=== PATIENT | female | born 1955 | race Caucasian/White ===

== ENCOUNTER 2016-11-01 19:10 | Emergency (ER) | payer OTHER ==
--- NOTE | 2016-11-01 19:26 | PDOC ---
Rapid Medical Evaluation Time Seen by Provider: 11/01/16 19:18 Medical Evaluation: 11/01/16 19:19 I have performed a brief in-person evaluation of this patient. The patient presents with a chief complaint of: cough, congestion x 2 weeks, hip pain worse with walking x 2 weeks. breast cancer with mastectomy 10 years ago Pertinent physical exam findings. lungs clear bilateral , I have ordered the following: cxr The patient will proceed to fast track for further evaluation.
[2016-11-01 19:35] VITALS: PULSE 102; TEMP 98.4; BMI 28.3
[2016-11-01 19:40] VITALS: BP 164/89
--- NOTE | 2016-11-01 20:44 | PDOC ---
History of Present Illness - General Chief Complaint: Cold Symptoms Stated Complaint: PALPITATIONS Time Seen by Provider: 11/01/16 19:18 - History of Present Illness Initial Comments: 11/01/16 20:43 CHIEF COMPLAINT: URI symptoms HISTORY OF PRESENT ILLNESS: 60-year-old female with no significant past medical history presents to ED with productive cough, the aches, headaches, and discomfort to right hip when walking 2 weeks. Patient's complains that she " has the flu". No recent travel or sick contacts. PAST MEDICAL HISTORY: Denies past medical history FAMILY HISTORY: Denies SOCIAL HISTORY: Denies tobacco, alcohol, illicit drug use. SURGICAL HISTORY: Denies ALLERGIES: No known drug allergies REVIEW OF SYSTEMS General/Constitutional: Chills. Denies fever.Denies weakness, weight change. HEENT: Denies change in vision. Denies ear pain or discharge. Denies sore throat. Cardiovascular: Denies chest pain or shortness of breath. Respiratory: Denies cough, wheezing, or hemoptysis. Gastrointestinal: Denies nausea, vomiting, diarrhea or constipation. Denies rectal bleeding. Genitourinary: Denies dysuria, frequency, or change in urination. Musculoskeletal: Denies joint or muscle swelling or pain. Denies neck or back pain. Skin and breasts: Denies rash or easy bruising. PHYSICAL EXAM General Appearance: Well-appearing, appropriately dressed. No apparent distress , no intoxication. HEENT: EOMI, PERRLA, normal ENT inspection, normal voice, TMs normal, pharynx normal. No conjunctival pallor. No photophobia, scleral icterus. Neck: Supple. Trachea midline. No tenderness, rigidity, carotid bruit, stridor , lymphadenopathy, or thyromegaly. Respiratory/Chest: Lungs CTAB. No shortness of breath, chest tenderness, respiratory distress, accessory muscle use. No crackles, rales, rhonchi, stridor , wheezing, dullness Cardiovascular: RRR. S1, S2. No JVD, murmur, bradycardia, tachycardia. Vascular Pulses: Dorsalis-Pedis (R): 2+, Dorsalis-Pedis (L): 2+ Gastrointestinal/Abdominal: Normal bowel sounds. Abdomen soft, non-distended. No tenderness or rebound tenderness. No organomegaly, pulsatile mass, guarding , hernia, hepatomegaly, splenomegaly. Lymphatic: No adenopathy, tenderness. Musculoskeletal/Extremities: Normal inspection. FROM of all extremities, normal capillary refill. Pelvis Stable. No CVA tenderness. No tenderness to extremities, pedal edema, swelling, erythema or deformity. Integumentary: Appropriate color, dry, warm. No cyanosis, erythema, jaundice or rash Neurologic: attendance clerk II-XII intact. Fully oriented, alert. Appropriate mood/affect. Motor strength 5/5. No appreciable EOM palsy, facial droop or sensory deficit. 11/01/16 20:49 Past History - Past Medical History Allergies/Adverse Reactions: Allergies Allergy/AdvReac Type Severity Reaction Status Date / Time No Known Allergies Allergy Verified 11/01/16 19:21 Home Medications: Ambulatory Orders Clarithromycin [Biaxin] 500 mg PO BID #14 tablet 11/01/16 Diclofenac Sodium 50 mg PO BID #14 tablet. 11/01/16 Cancer: Yes (breast) - Psycho/Social/Smoking Cessation Hx Suicidal Ideation: No Smoking History: Never smoked Have you smoked in the past 12 months: No Information on smoking cessation initiated: No Hx Alcohol Use: No Drug/Substance Use Hx: No *Physical Exam - Vital Signs Last Vital Signs Temp Pulse Resp BP Pulse Ox 98.4 F 102 H 14 164/89 99 11/01/16 19:22 11/01/16 19:22 11/01/16 19:22 11/01/16 19:22 11/01/16 19:22 Medical Decision Making - Medical Decision Making 11/01/16 21:36 60 yo F with no significant PMH presents to [facility] with productive cough, body aches, and generalized malaise x 2 weeks, accompanied by right hip pain when walking. -CXR Chest x-ray negative for cardiopulmonary disease. -Flu rapid swab Flu negative. 500 mg clarithromycin bid x 7 days. Diclofenac 50 mg bid x 7 days ADvised patient to f/u with orthopedics for further evaluation and management of hip pain. Advised patient to take medications as prescribed and of signs and symptoms for return to ER. Patient verbalized understanding and agree to plan. 11/01/16 21:38 *DC/Admit/Observation/Transfer Diagnosis at time of Disposition: Bronchitis Hip pain Qualifiers: Laterality: right Qualified Code(s): M25.551 - Pain in right hip - Discharge Dispostion Admit: No - Prescriptions Prescriptions: Clarithromycin [Biaxin] 500 mg PO BID #14 tablet Diclofenac Sodium 50 mg PO BID #14 tablet.dr - Referrals Referrals: Roni Campos MD [Staff Physician] - - Patient Instructions Printed Discharge Instructions: DI for Acute Bronchitis, DI for Leg Pain Additional Instructions: Please take medications as prescribed and follow up with the orthopedic doctor next week. If you experience any chest pain, shortness of breath, difficulty breathing, palpitations, fever, vomiting, diarrhea, or any new or worsening symptoms, please return to the ER.
== END 2016-11-01 21:43 | disposition home or self-care (01) ==
LOC: JERFT 19:10
DX: J40 Bronchitis, not specified as acute or chronic (principal); M25.551 Pain in right hip; Z85.3 Personal history of malignant neoplasm of breast
CPT/HCPCS: 71020-TC; 87804; 99281-25